=== PATIENT | female | born 1985 | race Caucasian/White ===

== ENCOUNTER 2022-05-17 20:28 | Emergency (ER) | payer OTHER, SELFPAY ==
[2022-05-17 20:39] VITALS: BP 147/74; PULSE 92; RESP 14; TEMP 37.1; O2SAT 99; BMI 24.1
--- NOTE | 2022-05-17 21:09 | CRLHL7_ITS ---
For Patients: As a result of the Cures Act, medical imaging exams and procedure reports are released immediately into your electronic medical record. You may view this report before your referring provider. If you have questions, please contact your health care provider. INDICATION: Left low chest pain for 4-5days TECHNIQUE: Chest radiograph 1 view COMPARISON: None FINDINGS: Mediastinum: The mediastinum is normal in appearance. The heart silhouette is normal in size and morphology. Lung: Both lungs are unremarkable in appearance. No sign of pleural effusion seen. No pneumothorax is identified. Bone and Soft tissue: Unremarkable for age. IMPRESSION: 1. No acute cardiopulmonary disease is seen. Dictated by: Greg Wallis MD @ 05/17/2022 21:36:14 (Electronically Signed)
[2022-05-17 21:20] VITALS: BP 97/62; PULSE 89; RESP 16; O2SAT 98
[2022-05-17 21:35] VITALS: BP 113/71; PULSE 90; RESP 16; O2SAT 100
[2022-05-17 21:39] LABS: Basophils Absolute Auto 0.03 K/uL (0.00-0.30); Basophils Percent Auto 0.3 % (0.0-3.0); Eosinophils Absolute Auto 0.11 K/uL (0.00-0.50); Eosinophils Percent Auto 1.2 % (0.0-7.0); Hemoglobin* 13.1 gm/dL (12.0-16.0); Immature Granulocytes Abs Auto 0.01 K/uL (0.00-0.30); Immature Granulocytes Pct Auto 0.1 %; Lymphocytes Absolute Auto 2.41 K/uL (0.90-2.90); Lymphocytes Percent Auto 27.3 % (20-44); Mean Corpuscular HGB Conc 35 gm/dL (32-36); Mean Corpuscular Hemoglobin 31 pg (26-34); Mean Corpuscular Volume 88 fL (80-100); Neutrophils Absolute Auto 5.55 K/uL (1.7-7.0); Neutrophils Percent Auto 63.1 % (42.0-72.0); Platelet Count* 293 K/uL (140-440); RDW Coefficient of Variation % 12.1 % (11.5-15.5); White Blood Count* 8.82 K/uL (4.50-11.00)
[2022-05-17 21:44] LABS: Slide Review Reflex No
[2022-05-17 21:53] VITALS: BP 124/81; PULSE 89; RESP 18; O2SAT 99
[2022-05-17 22:02] LABS: Chloride* 111 mmol/L (96-114); Potassium* 3.9 mmol/L (3.6-5.1); Sodium* 139 mmol/L (135-149)
[2022-05-17 22:05] LABS: Blood Urea Nitrogen* 14 mg/dL (5-24); Carbon Dioxide* 21 mmol/L (20-32); Est. Creatinine Clearance* 69.31; Estimated Glomerular Filt Rate 74 ml/min; Glucose* 118 mg/dL (60-115)
[2022-05-17 22:06] LABS: Calcium* 8.5 mg/dL (8.4-10.6)
[2022-05-17 22:07] LABS: D Dimer Quantitative* 0.35 ug/ml (0.00-0.50)
[2022-05-17 22:08] LABS: C Reactive Protein* 0.5 mg/dL (0.5-1.0)
[2022-05-17 22:15] LABS: NT Pro B Type NatriureticPept* 37 pg/mL
[2022-05-17 22:21] LABS: Troponin I* < 0.01 ng/mL (0.01-0.04)
[2022-05-17 23:16] VITALS: BP 122/83; PULSE 99; RESP 16
--- NOTE | 2022-05-18 14:46 | ED.CHESTPAIN ---
HPI - Chest Pain General Chief Complaint: Chest Pain Stated Complaint: Chest Pains, Sharp pain when breathing Time Seen by Provider: 05/17/22 20:59 History of Present Illness HPI narrative: 36 year-old woman presenting to the emergency department accompanied by her significant other with concern of sharp left-sided low chest pain that has been present over the last five days and more recently escalating in intensity. She notes how it was more uncomfortable feeding the horses today. It is pleuritic in nature. Seems to be radiating to the back. Not really able to identify any exacerbating relieving factors other than worse with breathing as noted. She started to feel some tingling into her left arm as well today. No focal weaknesses. No leg pain or swelling. No particular exercise intolerance. No arrhythmia/palpitations. She's not lightheaded. No dizziness. Subtle nausea? She's worried about potential heart attack or maybe a blood clot. No family history of coagulopathy though I believe brother had a blood clot? No preceding illness, cough or cold symptoms. Related Data Home Medications Medication Instructions Recorded Confirmed levonorgestrel-ethinyl estradiol tab 05/17/22 0.1 mg-20 mcg tablet (Vienva) Allergies Allergy/AdvReac Type Severity Reaction Status Date / Time Sulfa (Sulfonamide Allergy Verified 05/17/22 20:38 Antibiotics) [facility] Social History Smoking Status: Never smoker Do you use any of these nicotine containing products: None Second hand tobacco smoke exposure: No How often do you have a drink containing alcohol: never How often do you have six or more drinks on one occasion: Never AUDIT-C Alcohol total score: 0 Non-prescribed substance use: denies use service: No Exam Narrative Exam Narrative: Pleasant. NAD. Sclera are injected consistent with crying. She is breathing easily not splinting. Moving all extremities without difficulty or apparent deficit. Sensation appears to be intact. She is well-perfused peripherally. No pain to palpation of the lower extremities nor swelling/edema appreciated. Well-nourished, well-muscled. Trachea midline. Neck is supple without cervical lymphadenopathy. Oropharynx unremarkable. There's no supraclavicular crepitus. Lungs are clear with equal expansion/excursion. Palpation of the chest wall doesn't exactly reproduce the pain though may be a little uncomfortable to palpation under the left breast area. There is no rash or erythema. Back nontender. Heart is with a regular rate and rhythm. Abdomen soft and nontender. CN 2 through 12 look to be intact. Const Vital Signs, click to edit/add: Vital Signs - 24 hr 05/17/22 20:39 05/17/22 21:20 05/17/22 21:35 Temperature 98.8 F Pulse Rate [Right Pulse Oximeter] 92 89 90 Respiratory Rate 14 16 16 Blood Pressure [Right Upper Arm] 147/74 H 97/62 113/71 Pulse Oximetry 99 98 100 Oxygen Delivery Method Room Air Room Air Room Air 05/17/22 21:53 05/17/22 23:16 Temperature Pulse Rate [Right Pulse Oximeter] 89 99 Respiratory Rate 18 16 Blood Pressure [Right Upper Arm] 124/81 122/83 Pulse Oximetry 99 Oxygen Delivery Method Room Air Documenting provider has reviewed patient's vital signs: yes Course Vital Signs Vital signs: Initial Vital Signs Temperature 98.8 F 05/17/22 20:39 Temperature Source Temporal Artery Scan 05/17/22 20:39 Pulse Rate 92 05/17/22 20:39 Respiratory Rate 14 05/17/22 20:39 Blood Pressure 147/74 H 05/17/22 20:39 Blood Pressure Mean 98 05/17/22 20:39 Blood Pressure Position Sitting 05/17/22 20:39 Pulse Oximetry 99 05/17/22 20:39 Oxygen Delivery Method 05/17/22 20:39 Vital Signs Temperature 98.8 F 05/17/22 20:39 Pulse Rate 92 05/17/22 20:39 Respiratory Rate 14 05/17/22 20:39 Blood Pressure 147/74 H 05/17/22 20:39 Pulse Oximetry 99 05/17/22 20:39 Oxygen Delivery Method 05/17/22 20:39 Temperature 98.8 F 05/17/22 20:39 Pulse Rate 99 05/17/22 23:16 Respiratory Rate 16 05/17/22 23:16 Blood Pressure 122/83 05/17/22 23:16 Pulse Oximetry 99 05/17/22 21:53 Oxygen Delivery Method 05/17/22 21:53 MDM - Chest Pain MDM Narrative Medical decision making narrative: Broad differential. I suspect more of a pleuritis or costochondritis. Initial EKG reviewed by me without any evidence of strain or cardiac inflammatory change. Chest x-ray without evidence of pneumothorax or other infiltrate. Normal mediastinum as well. D-dimer being normal suggests no pulmonary embolus or vascular disruption. Normal labs and duration of pain would not suggest ischemic cardiac injury. No noted trauma history other than maybe rotational exercises in yoga but this doesn?t sound to be unusual. No events on monitor during time in the ER. Sclera clearing. Lab Data Labs: Lab Results 05/17/22 05/17/22 05/17/22 Range/Units 21:10 21:25 21:25 WBC 8.82 (4.50-11.00) K/uL RBC 4.30 (4.00-5.20) m/uL Hgb 13.1 (12.0-16.0) gm/dL Hct 38.0 (33.0-51.0) % MCV 88 (80-100) fL MCH 31 (26-34) pg MCHC 35 (32-36) gm/dL RDW Coeff of Martín 12.1 (11.5-15.5) % Plt Count 293 (140-440) K/uL Neut % (Auto) 63.1 (42.0-72.0) % Lymph % (Auto) 27.3 (20-44) % Toole % (Auto) 8.0 (0.0-11.0) % Eos % (Auto) 1.2 (0.0-7.0) % Baso % (Auto) 0.3 (0.0-3.0) % Neut # (Auto) 5.55 (1.7-7.0) K/uL Lymph # (Auto) 2.41 (0.90-2.90) K/uL Toole # (Auto) 0.70 (0.00-0.90) K/UL Eos # (Auto) 0.11 (0.00-0.50) K/uL Baso # (Auto) 0.03 (0.00-0.30) K/uL D-Dimer Quant (PE/DVT) 0.35 (0.00-0.50) ug/ml Sodium (135-149) mmol/L Potassium (3.6-5.1) mmol/L Chloride (96-114) mmol/L Carbon Dioxide (20-32) mmol/L BUN (5-24) mg/dL Creatinine (0.5-1.5) mg/dL Estimated Creat Clear Estimated GFR ml/min Glucose (60-115) mg/dL Calcium (8.4-10.6) mg/dL Troponin I (0.01-0.04) ng/mL C-Reactive Protein (0.5-1.0) mg/dL NT-Pro-B Natriuret Pep pg/mL POC Troponin I 0.00 L (0.01-0.04) ng/ml 05/17/22 Range/Units 21:25 WBC (4.50-11.00) K/uL RBC (4.00-5.20) m/uL Hgb (12.0-16.0) gm/dL Hct (33.0-51.0) % MCV (80-100) fL MCH (26-34) pg MCHC (32-36) gm/dL RDW Coeff of Martín (11.5-15.5) % Plt Count (140-440) K/uL Neut % (Auto) (42.0-72.0) % Lymph % (Auto) (20-44) % Toole % (Auto) (0.0-11.0) % Eos % (Auto) (0.0-7.0) % Baso % (Auto) (0.0-3.0) % Neut # (Auto) (1.7-7.0) K/uL Lymph # (Auto) (0.90-2.90) K/uL Toole # (Auto) (0.00-0.90) K/UL Eos # (Auto) (0.00-0.50) K/uL Baso # (Auto) (0.00-0.30) K/uL D-Dimer Quant (PE/DVT) (0.00-0.50) ug/ml Sodium 139 (135-149) mmol/L Potassium 3.9 (3.6-5.1) mmol/L Chloride 111 (96-114) mmol/L Carbon Dioxide 21 (20-32) mmol/L BUN 14 (5-24) mg/dL Creatinine 1.0 (0.5-1.5) mg/dL Estimated Creat Clear 69.31 Estimated GFR 74 ml/min Glucose 118 H (60-115) mg/dL Calcium 8.5 (8.4-10.6) mg/dL Troponin I < 0.01 L (0.01-0.04) ng/mL C-Reactive Protein 0.5 (0.5-1.0) mg/dL NT-Pro-B Natriuret Pep 37 pg/mL POC Troponin I (0.01-0.04) ng/ml Discharge Plan Discharge Clinical Impression: Pleuritic chest pain Patient Disposition: Home w/ Parent or Adult Condition: Stable Additional Instructions: I do think it is important to stay well hydrated. I would take somewhere between 600-800 mg of ibuprofen 3 times a day over the next 5 days. Alternative to that could be somewhere between 220-500 mg of naproxen 2 times daily. Take this also for 5 days. I would take either of these medications with a little food. Return for persistent and increasing pain, persistent shortness of breath, associated lightheadedness. I do not think you need to restrict your activities at this time except that discomfort may limit them. Prescriptions: No Action levonorgestrel-ethinyl estrad [Vienva] 0.1-20 mg-mcg tablet Label Comments: TAKE 1 TABLET BY MOUTH EVERY DAY Follow Up/Referrals: Julia Cardona MD [Primary Care Provider] - Stand Alone Forms: [employer] Info Instructions
== END 2022-05-17 23:17 | disposition home or self-care (01) ==
PROVIDERS: Emergency Provider Family Medicine; PCP Obstetrics & Gynecology
DX: R07.89 Other chest pain (principal)
CPT/HCPCS: 36415; 71045; 80048; 83880; 84484; 85025; 85379; 86140; 93005; 99284; 99285